=== PATIENT | male | born 1995 | race Caucasian/White ===

== ENCOUNTER → 2023-12-20 | Outpatient (CLI) | payer SELFPAY | LOC: COL.RAD 15:39 | DX: K82.0 Obstruction of gallbladder (principal); K82.8 Other specified diseases of gallbladder; R74.8 Abnormal levels of other serum enzymes; R17 Unspecified jaundice ==

== ENCOUNTER → 2024-01-04 | Outpatient (CLI) | payer SELFPAY ==
[~2024-01-04] VITALS: Ht 172.7 cm; Wt 64.9 kg
[2024-01-04] VITALS (15 sets, daily range): BP systolic 89–128; BP diastolic 43–82; PULSE 75–98; TEMP 98.1
[~2024-01-04] MED LIST: Gelatin Sponge,Absorbable Size 12-7 SPONGE TP SCH; fentaNYL 50 MCG/ML 2 ML VIAL IV SCH
--- NOTE | 2024-01-04 12:25 | NUR ---
After starting iv pt states he is not feeling well and wants to lay down. Pt then goes stiff and head rolls back, eyes dilated, pt shaking in upper body approximately 10-15 seconds. Help called for Dr Dye into room. Pt talking with doctor. Pt moved to [facility] and blood sugar completed at 135. 1230 V/S 91 20 105/66 98%, pt reports he is feeling better. 1248 Repeat V/S 82 20 110/73 98% Pt continues to feel better. 1258 Dr Dye back in to talk with pt. Pt wants to proceed with biopsy. 1306 89 20 111/77 98%
[2024-01-04 12:38] LABS: INR 1.2 (0.8-3.0); PROTHROMBIN TIME 12.9 SECONDS (9.7-12.8)
--- NOTE | 2024-01-04 13:15 | NUR ---
Pt to ct per wheelchair. Pt onto ct table in supine postition. Monitors applied.
--- NOTE | 2024-01-04 13:30 | NUR ---
Dr Dye talks with pt. Pt verbalized understanding of procedure.
--- NOTE | 2024-01-04 13:50 | NUR ---
Specimens obtained by Dr Dye and placed in formalin. Specimen labeled. Gel foam placed in biopsy site per Dr Dye.
--- NOTE | 2024-01-04 15:00 | NUR ---
Dr Dye in to talk with pt and mother. 1505 Discharge instructions gone over with pt. Pt verbalized understanding of instructions. Copy given to pt. Pt up to get dressed. 1510 Pt out to car per wheelchair. Pt up and into car without difficulty.
== END ==
LOC: COL.RAD 11:54
PROVIDERS: Radiology Diagnostic Radiology
DX: R17 Unspecified jaundice (principal); R74.8 Abnormal levels of other serum enzymes
CPT/HCPCS: J3010